=== PATIENT | female | born 1945 | race Two or more races ===

== ENCOUNTER 2021-07-07 06:05 | Outpatient (CLI) | payer OTHER | END 2021-07-07 23:59 | disposition home or self-care (01) | LOC: LAB 06:05 | PROVIDERS: ATTEND Ophthalmology | DX: Z01.812 Encounter for preprocedural laboratory examination (principal); Z20.822 Contact with and (suspected) exposure to COVID-19 ==

== ENCOUNTER 2021-07-09 05:44 | Day surgery (SDC) | payer OTHER ==
[2021-07-09] MEDS ORDERED: TROPICAMIDE 1% OPHT DROP 3 ML BOTTLE ONE (06:56)
[2021-07-09] MEDS ORDERED: KETOROLAC 0.5% OPHT DROP 3 ML BOTTLE ONE (06:56)
[2021-07-09] MEDS ORDERED: CYCLOPENTOLATE 1% OPHT DROP 2 ML BOTTLE ONE (06:56)
[2021-07-09] MEDS ORDERED: CIPROFLOXACIN 0.3% OPHT DROP 2.5 ML BOTTLE ONE (06:57)
[2021-07-09] MEDS ORDERED: PHENYLEPHRINE 2.5% OPHT DROP 2 ML BOTTLE ONE (06:57)
[2021-07-09] MEDS ORDERED: BALANCED SALT IRRIG SOLN COMB1 500 ML, EPINEPHRINE-PF 1:1000 0.5 MG IO ONE ×2 (07:00)
[2021-07-09] MEDS ORDERED: TRYPAN BLUE 0.5 ML DISP.SYRIN ONE (07:25)
[2021-07-09] MEDS ORDERED: NEO/POLYMYX B/DEXAME OPHT OINT 3.5 GM TUBE ONE (07:25)
[2021-07-09] MEDS ORDERED: MOXIFLOXACIN HCL 3 ML OPHT DROPS ONE (07:25)
[2021-07-09] MEDS ORDERED: TIMOLOL MALEATE 0.5% OPHT DROP 5 ML BOTTLE ONE (07:25)
[2021-07-09] MEDS ORDERED: ACETYLCHOLINE CHLORIDE 1% OPHT 1 EA KIT ONE (07:25)
[2021-07-09] MEDS ORDERED: BALANCED SALT IRRIG SOLN COMB2 15 ML IRRIG.SOLN ONE (07:25)
[2021-07-09] MEDS ORDERED: LIDOCAINE-MPF 2% 5 ML VIAL ONE (07:25)
[2021-07-09] MEDS ORDERED: BALANCED SALT IRRIG SOLN COMB1 500 ML ONE (07:26)
[2021-07-09] MEDS ORDERED: HYALURONATE SODIUM 12.8 MG/0.8 ML DISP.SYRIN ONE (07:26)
[2021-07-09] MEDS ORDERED: BUPIVACAINE PF 0.5% 30 ML VIAL ONE (07:26)
[2021-07-09] MEDS ORDERED: HYALURONIDASE,OVINE 200 UNITS/ML VIAL ONE (07:26)
[2021-07-09] MEDS ORDERED: FENTANYL CITRATE 100 MCG/2 ML AMPUL ONE (08:03)
== END 2021-07-09 10:40 | disposition home or self-care (01) ==
LOC: DS 05:44
PROVIDERS: ATTEND Ophthalmology
DX: E11.36 Type 2 diabetes mellitus with diabetic cataract (principal); H25.89 Other age-related cataract; I12.9 Hypertensive chronic kidney disease with stage 1 through stage 4 chronic kidney disease, or unspecified chronic kidney disease; E11.22 Type 2 diabetes mellitus with diabetic chronic kidney disease; N18.9 Chronic kidney disease, unspecified; D64.9 Anemia, unspecified; Z79.84 Long term (current) use of oral hypoglycemic drugs; Z79.899 Other long term (current) drug therapy; Z98.890 Other specified postprocedural states
CPT/HCPCS: 66984; 71045; 82962 ×2; J0171; J3010; J3471; J3490 ×2; J7321; Q9968; V2632; A4663; J7030

== ENCOUNTER 2022-05-26 08:00 | Outpatient (CLI) | END 2022-05-26 23:59 | disposition home or self-care (01) | DX: Z01.812 Encounter for preprocedural laboratory examination (principal); Z20.822 Contact with and (suspected) exposure to COVID-19 ==

== ENCOUNTER 2022-05-27 06:12 | Day surgery (SDC) | payer OTHER ==
[2022-05-27] MEDS ORDERED: CYCLOPENTOLATE 1% OPHT DROP 2 ML BOTTLE ONE (06:35)
[2022-05-27] MEDS ORDERED: KETOROLAC 0.5% OPHT DROP 3 ML BOTTLE ONE (06:35)
[2022-05-27] MEDS ORDERED: CIPROFLOXACIN 0.3% OPHT DROP 2.5 ML BOTTLE ONE (06:35)
[2022-05-27] MEDS ORDERED: TROPICAMIDE 1% OPHT DROP 3 ML BOTTLE ONE (06:35)
[2022-05-27] MEDS ORDERED: PHENYLEPHRINE 2.5% OPHT DROP 2 ML BOTTLE ONE (06:35)
[2022-05-27] MEDS ORDERED: TETRACAINE HCL 0.5% OPHT DROP 2 ML BOTTLE ONE (06:50)
[2022-05-27] MEDS ORDERED: PHENYLEPHRINE 10% OPHT DROP 5 ML BOTTLE ONE (06:50)
[2022-05-27] MEDS ORDERED: BALANCED SALT IRRIG SOLN COMB1 500 ML ONE (06:50)
[2022-05-27] MEDS ORDERED: TRYPAN BLUE 0.5 ML DISP.SYRIN ONE (06:50)
[2022-05-27] MEDS ORDERED: BALANCED SALT IRRIG SOLN COMB2 15 ML IRRIG.SOLN ONE (06:50)
[2022-05-27] MEDS ORDERED: MOXIFLOXACIN HCL 3 ML OPHT DROPS ONE (06:50)
[2022-05-27] MEDS ORDERED: ACETYLCHOLINE CHLORIDE 1% OPHT 1 EA KIT ONE (06:51)
[2022-05-27] MEDS ORDERED: TIMOLOL MALEATE 0.5% OPHT DROP 5 ML BOTTLE ONE (06:51)
[2022-05-27] MEDS ORDERED: LIDOCAINE HCL 2% 20 ML VIAL ONE (06:51)
[2022-05-27] MEDS ORDERED: BUPIVACAINE PF 0.5% 30 ML VIAL ONE (06:51)
[2022-05-27] MEDS ORDERED: NEO/POLYMYX B/DEXAME OPHT OINT 3.5 GM TUBE ONE (06:51)
[2022-05-27] MEDS ORDERED: HYALURONATE SODIUM 8.5 MG/0.85 ML ONE (06:52)
[2022-05-27] MEDS ORDERED: HYALURONATE SODIUM 12.8 MG/0.8 ML DISP.SYRIN ONE (06:52)
[2022-05-27] MEDS ORDERED: HYALURONIDASE,OVINE 200 UNITS/ML VIAL ONE (06:52)
[2022-05-27 06:57] LABS: *BILIRUBIN,URIN NEGATIVE (NEGATIVE); *BLOOD, URINE NEGATIVE (NEGATIVE); *CLARITY,URINE CLEAR (CLEAR); *COLOR,URINE YELLOW (YELLOW); *KETONES,URINE NEGATIVE (NEGATIVE); *UROBILINOGEN,URINE 0.2 E.U./dl (NORMAL); LEUKOCYTE ESTERASE ,URINE NEGATIVE (NEGATIVE); NITRITE, URINE NEGATIVE (NEGATIVE); PH,URINE 5.5 (5.0-8.0); UGLUCOSE NEGATIVE (NEGATIVE)
[2022-05-27 06:58] LABS: HEMATOCRIT 31.5 % (31.2-41.9); MEAN CORPUSCULAR HEMOGLOBIN 30.5 uug (24.7-32.8); MEAN CORPUSCULAR VOLUME 90.3 fL (75.5-95.3); PLATELET COUNT (AUTO) 307 K/uL (179-408)
[2022-05-27 07:02] LABS: CARBON DIOXIDE 27 mmol/L (21-32); CHLORIDE 106 mmol/L (98-107); CREATININE 1.5 mg/dL (0.6-1.3); GLUCOSE 106 mg/dL (74-106); POTASSIUM 4.5 mmol/L (3.5-5.1); UREA NITROGEN, BLOOD 36 mg/dL (7-18)
[2022-05-27] MEDS ORDERED: FENTANYL CITRATE 100 MCG/2 ML AMPUL ONE (07:40)
== END 2022-05-27 10:50 | disposition home or self-care (01) ==
LOC: DS 06:12
PROVIDERS: ATTEND Ophthalmology
DX: E11.36 Type 2 diabetes mellitus with diabetic cataract (principal); H25.89 Other age-related cataract; I10 Essential (primary) hypertension; J45.909 Unspecified asthma, uncomplicated; D64.9 Anemia, unspecified; Z79.84 Long term (current) use of oral hypoglycemic drugs; Z79.899 Other long term (current) drug therapy; Z98.890 Other specified postprocedural states
CPT/HCPCS: 36415; 71045; 85025; 85730; A4663; J3010; J3471; J3490; J7321; Q9968; V2632